=== PATIENT | female | born 1940 | race Caucasian/White ===

== ENCOUNTER 2019-01-02 10:41 | Outpatient (CLI) | payer MEDICARE, OTHER ==
--- NOTE | 2019-01-02 11:13 | MMO ---
Bilateral MAMMO Bilat Screen DDI+JUJU. CLINICAL HISTORY: Patient is 78 years old and is seen for screening. The patient has no family history of breast cancer. The patient has no personal history of cancer. VIEWS: The views performed were: bilateral craniocaudal with tomosynthesis and bilateral mediolateral oblique with tomosynthesis. FILMS COMPARED: The present examination has been compared to prior imaging studies performed at [facility] on 11/26/2012, 01/03/2015 and 12/31/2016, and at [facility] on 06/29/2009. MAMMOGRAM FINDINGS: The breasts are extremely dense, which may lower the sensitivity of mammography. There are vascular calcifications seen in both breasts. There are no suspicious masses, suspicious calcifications, or new areas of architectural distortion. IMPRESSION: THERE IS NO MAMMOGRAPHIC EVIDENCE OF MALIGNANCY. A ROUTINE FOLLOW-UP MAMMOGRAM IN 1 YEAR IS RECOMMENDED. THE RESULTS OF THIS EXAM WERE SENT TO THE PATIENT. ACR BI-RADS Category 2 - Benign finding MAMMOGRAPHY NOTE: 1. A negative mammogram report should not delay a biopsy if a dominant of clinically suspicious mass is present. 2. Approximately 10% to 15% of breast cancers are not detected by mammography. 3. Adenosis and dense breasts may obscure an underlying neoplasm.
== END 2019-01-02 10:42 | disposition home or self-care (01) ==
LOC: BICMAMMO 10:41
PROVIDERS: ATTEND Internal Medicine
DX: Z12.31 Encounter for screening mammogram for malignant neoplasm of breast (principal)
CPT/HCPCS: 77063; 77067

== ENCOUNTER 2020-04-06 09:27 | Outpatient (CLI) | payer MEDICARE, OTHER ==
--- NOTE | 2020-04-06 10:21 | MMO ---
Bilateral MAMMO Bilat Screen DDI+JUJU. CLINICAL HISTORY: Patient is 80 years old and is seen for screening. The patient has no family history of breast cancer. The patient has no personal history of cancer. VIEWS: The views performed were: bilateral craniocaudal with tomosynthesis and bilateral mediolateral oblique with tomosynthesis. FILMS COMPARED: The present examination has been compared to prior imaging studies performed at [facility] on 11/26/2012, 01/03/2015, 12/31/2016 and 01/02/2019. This study has been interpreted with the assistance of computer-aided detection. MAMMOGRAM FINDINGS: The breasts are extremely dense, which may lower the sensitivity of mammography. There are stable benign appearing calcifications seen in both breasts. There are no suspicious masses, suspicious calcifications, or new areas of architectural distortion. IMPRESSION: THERE IS NO MAMMOGRAPHIC EVIDENCE OF MALIGNANCY. A ROUTINE FOLLOW-UP MAMMOGRAM IN 1 YEAR IS RECOMMENDED. THE RESULTS OF THIS EXAM WERE SENT TO THE PATIENT. ACR BI-RADS Category 2 - Benign finding MAMMOGRAPHY NOTE: 1. A negative mammogram report should not delay a biopsy if a dominant of clinically suspicious mass is present. 2. Approximately 10% to 15% of breast cancers are not detected by mammography. 3. Adenosis and dense breasts may obscure an underlying neoplasm. Reported by: SAGAR WHITING MD Electonically Signed: [id number]
--- NOTE | 2020-04-06 12:31 | BD ---
BONE DENSITOMETRY USING DEXA: Date: 04/06/2020 HISTORY: Postmenopausal screening for osteoporosis. FINDINGS: Lumbar Spine: BMD (g/cm2) L1 0.677 T-Score: -2.8 Z-Score: -0.4 L2 0.724 T-Score: -2.8 Z-Score: -0.1 L3 0.819 T-Score: -2.4 Z-Score: 0.4 L4 0.884 T-Score: -1.6 Z-Score: 1.3 L1-L4 0.783 T-Score: -2.4 Z-Score: 0.3 Femoral Neck: 0.478 T-Score: -3.3 Z-Score: -1.0 Total Femur: 0.683 T-Score: -2.1 Z-Score: 0.0 IMPRESSION: Osteoporosis. POS: AH
== END 2020-04-06 09:28 | disposition home or self-care (01) ==
LOC: BICMAMMO 09:27
PROVIDERS: ATTEND Internal Medicine
DX: Z12.31 Encounter for screening mammogram for malignant neoplasm of breast (principal); Z13.820 Encounter for screening for osteoporosis; M81.0 Age-related osteoporosis without current pathological fracture
CPT/HCPCS: 77063; 77067; 77080

== ENCOUNTER 2020-04-08 10:44 | Observation (INO) | payer MEDICARE, OTHER ==
[2020-04-08 11:22] LABS: #Eosinphils 0.1 thou/uL (0.0-0.7); #Lymphocytes 0.7 thou/uL (1.20-3.40); #Monocytes 0.5 thou/uL (0.11-0.59); #Neutrophils 6.7 thou/uL (1.40-6.50); %Basophils 0.2 % (0.0-1.0); %Lymphocytes 9.2 % (21.0-51.0); %Monocytes 6.8 % (0.0-10.0); %Neutrophils 82.9 % (42.0-75.0); Hemoglobin 13.6 g/dL (12.0-16.0); Mean Corpuscular HGB CONC 33.9 g/dL (32.0-36.0); Mean Corpuscular Hemoglobin 32.7 pg (27.0-31.0); Mean Corpuscular Volume 96.4 fL (78.0-98.0); Mean Platelet Volume 8.7 fL (7.4-10.4); Platelet Count 205 thou/uL (130-400); Red Blood Cell (RBC) Count 4.15 mill/uL (4.20-5.40)
--- NOTE | 2020-04-08 11:28 | CT ---
CT BRAIN WITHOUT CONTRAST: Date: 04/08/2020 HISTORY: Fall, headache, weakness. Level II stroke. FINDINGS: No evidence of acute infarct, hemorrhage, midline shift, or abnormal extra-axial fluid collections ar e seen. There are changes of chronic small vessel ischemic disease in the periventricular white matte r. The ventricular size is normal and the basilar cisterns are patent. The bony calvarium is intact. The visualized paranasal sinuses are well aerated. IMPRESSION: No CT evidence of acute intracranial process. Discussed over the telephone with ER physician, Dr. Lia Gomez, at 1118 hours. CODE CR.
--- NOTE | 2020-04-08 11:35 | RAD ---
RADIOGRAPH CHEST 1 VIEW: DATE: 04/08/2020 HISTORY: 80-year-old female with dyspnea FINDINGS: There are no airspace densities, pulmonary edema, pneumothorax, or cardiomegaly. The lateral costophr enic angles are sharp. There is dextroscoliosis of the upper thoracic spine. IMPRESSION: 1. No acute cardiopulmonary findings. 2. Dextroscoliosis of upper thoracic spine.
--- NOTE | 2020-04-08 11:37 | RAD ---
Radiograph right hip 2 views: 04/08/2020 HISTORY: 80-year-old female with acute, traumatic right hip pain due to fall. FINDINGS: No fracture is identified. However, the osteopenia could obscure a nondisplaced fracture. No head con tour is maintained. No significant hip osteophytes. Joint space is maintained. Severe bilateral facet DJD at lower lumbar spine. Sclerotic changes overlapping the right femoral head could either be within the femoral head or in the acetabulum. IMPRESSION: 1.) Severe lower lumbar spondylosis. 2) osteopenia. 3) sclerosis at right hip. 4) no other abnormality of right hip identified.
[2020-04-08 11:47] LABS: ALT (SGPT) 18 U/L (8-55); AST (SGOT) 27 U/L (5-34); Albumin 4.3 g/dL (3.4-4.8); Alkaline Phosphatase 126 U/L (40-110); Anion Gap 11 mmol/L (10-20); BUN (Urea Nitrogen) 24 mg/dL (9.8-20.1); Bilirubin, Total 0.3 mg/dL (0.2-1.2); CK (CPK) 190 U/L (29-168); Calc. Creatinine Clearance 0 mL/min (70-130); Calcium 8.9 mg/dL (7.8-10.44); Carbon Dioxide 25 mmol/L (23-31); Chloride 109 mmol/L (98-107); Estimated GFR-MDRD 44; Globulin 2.5 g/dL (2.4-3.5); Glucose 97 mg/dL (83-110); Potassium 3.9 mmol/L (3.5-5.1); Protein, Total 6.8 g/dL (6.0-8.3); Sodium 141 mmol/L (136-145)
[2020-04-08 12:12] LABS: Bilirubin Negative (Negative); Blood, Urine Negative (Negative); Clarity Clear (Clear); Glucose, Urine (Dipstick) Normal (Negative); Ketone, Urine Negative (Negative); Leukocyte Negative Leu/uL (Negative); Nitrite Negative (Negative); Protein, Urine (Dipstick) 10 mg/dL (Neg-Trace); Specific Gravity, Urine 1.017 (1.002-1.036); Urobilinogen Normal mg/dL (Less than 2); pH, Urine 6.5 (5.0-9.0)
[2020-04-08] MEDS ORDERED: Aspirin Chewable 81 MG TAB ONE (13:13)
--- NOTE | 2020-04-08 13:17 | PDOC.HHP ---
Hospitalist HPI - History of Present Illness Weakness for several days History of Present Illness: PCP: Kenneth Veliz The patient is an 80-year-old female with a past medical history significant for renal insufficiency, hyperlipidemia and bilateral hand tremors that presents to the emergency department for the above complaint. The patient reports feeling generally weak for the past several days. Last night, around 3:00, she suffered a mechanical fall while walking in her house. She denies any loss of consciousness, hitting her head or vomiting. She denies syncope and vertigo. She was so weak that she crawled to the couch and rested there the rest of the morning. She did not want to "bother" her family that early in the morning. She denies any focal, unilateral weakness, change in speech. Then, around 7:00, she called her family member, to let them know what happened. When her family mem donna arrived, she reported headache, located around her entire head, described as aching, with no associated vision changes. There was a report of some slurred speech. She also reports that several days ago, she had double vision, which resolved spontaneously. Denies any recent fever or illness. No recent surgeries or hospitalizations. No change any home medications. At the time of her fall, denies any chest pain, heart palpitations, lower extremity swelling or lightheadedness. Denies any shortness of breath, wheezing, cough. Denies abdominal pain, nausea, vomiting, diarrhea. She denies any urinary symptoms. ED Course: VITAL SIGNS SatApr 08, 2020 10:45 DORINDA Randall Cheryl BP: 1314/67, Pulse: 67, Resp: 18, Temp: 97.9 (Oral), Pain: 3, O2 sat: 99 on (R oom Air), Time: 04/08/2020 10:45. VITAL SIGNS SatApr 08, 2020 11:41 DORINDA Fields Madison Brooke BP: 139/47, MAP: 77, Pulse: 63, Resp: 18, Temp: 97.9 (Oral), Pain: 3, O2 sat: 100 on (Room Air), Time: 04/08/2020 11:41. VITAL SIGNS SatApr 08, 2020 12:40 DORINDA Fields Madison Brooke BP: 130/59, Pulse: 82, Resp: 14, Pain: 3, O2 sat: 100 on (Room Air), Time: 04/08/2020 12:40. Medication administration: aspirin oral 324 mg Oral Acknowledged 12:45 04/08/2020 sodium chloride 0.9 % intravenous 1000 mL IV Fluid Infusion Acknowledged 12:45 04/08/2020 Hospitalist ROS - Review of Systems All other systems reviewed; all pertinent +/- noted in HPI/Subj - Medication Medications: topiramate SatApr 08, 2020 11:08 DORINDA Fields Madison Brooke tablet : Strength - 50 mg : ORAL Patient Dose: 1 tab(s) Oral 2 times a day. lisinopril SatApr 08, 2020 11:09 DORINDA Fields Madison Brooke tablet : Strength - 10 mg : ORAL Patient Dose: 1 tab(s) Oral once a day. atorvastatin SatApr 08, 2020 11:09 DORINDA Fields Madison Brooke tablet : Strength - 40 mg : ORAL Patient Dose: 1 tab(s) Oral once a day. doxercalciferol oral SatApr 08, 2020 11:10 DORINDA Fields Madison Brooke capsule : Strength - 1 mcg : ORAL Patient Dose: 1 tab(s) Oral once a day. primidone SatApr 08, 2020 11:11 DORINDA Fields Madison Brooke tablet : Strength - 250 mg : ORAL Patient Dose: 1 tab(s) Oral once a day. Allergies:No Known Drug Allergies Hospitalist History - Past Medical History Source: patient, family, RN notes reviewed Cardiac: reports: Hyperlipidemia HUMAN CAPITAL MANAGER: reports: Other (Bilateral hand tremors, on Topamax and primidone.) Renal/: reports: Chronic renal insuff - Past Surgical History Past Surgical History: reports: Cataract Removal (Bilateral), Hysterectomy, Total Hip Replacement (Left (6 years ago)), Other (Left rotator cuff) - Social History Smoking Status: Never smoker Alcohol: reports: None Drugs: reports: none Living Situation: Alone Occupation: Does not work Activity level: independent ambulation - Exam General Appearance: NAD, awake alert Eye: PERRL, anicteric sclera ENT: normocephalic atraumatic, dry oral mucosa Neck: supple, symmetric, no JVD Heart: RRR, no murmur, no gallops, no rubs, normal peripheral pulses Respiratory: CTAB, no wheezes, no rales, no ronchi, normal chest expansion, no tachypnea Gastrointestinal: non-tender, normal bowel sounds, no guarding, no rigidity Extremities: no cyanosis, no edema Skin: no rashes Neurological: cranial nerve grossly intact, no weakness, no focal deficits. negative: facial droop, speech deficit Neurological - other findings: NIH 0 Psychiatric: normal affect, A&O x 3 Hospitalist Results - Labs Result Diagrams: 04/08/20 11:07 04/08/20 11:07 Lab results: WBC 8.0 thou/uL (4.8-10.8) 04/08/20 11:07 Hgb 13.6 g/dL (12.0-16.0) 04/08/20 11:07 Hct 40.0 % (36.0-47.0) 04/08/20 11:07 MCV 96.4 fL (78.0-98.0) 04/08/20 11:07 Plt Count 205 thou/uL (130-400) 04/08/20 11:07 Neutrophils % 82.9 % (42.0-75.0) H 04/08/20 11:07 Sodium 141 mmol/L (136-145) 04/08/20 11:07 Potassium 3.9 mmol/L (3.5-5.1) 04/08/20 11:07 Chloride 109 mmol/L (98-107) H 04/08/20 11:07 Carbon Dioxide 25 mmol/L (23-31) 04/08/20 11:07 BUN 24 mg/dL (9.8-20.1) H 04/08/20 11:07 Creatinine 1.19 mg/dL (0.6-1.1) H 04/08/20 11:07 Glucose 97 mg/dL (83-110) 04/08/20 11:07 Calcium 8.9 mg/dL (7.8-10.44) 04/08/20 11:07 Total Bilirubin 0.3 mg/dL (0.2-1.2) 04/08/20 11:07 AST 27 U/L (5-34) 04/08/20 11:07 ALT 18 U/L (8-55) 04/08/20 11:07 Alkaline Phosphatase 126 U/L (40-110) H 04/08/20 11:07 Creatine Kinase 190 U/L (29-168) H 04/08/20 11:07 Troponin I 0.015 ng/mL (< 0.028) 04/08/20 11:07 Serum Total Protein 6.8 g/dL (6.0-8.3) 04/08/20 11:07 Albumin 4.3 g/dL (3.4-4.8) 04/08/20 11:07 Urine Ketones Negative mg/dL (Negative) 04/08/20 12:02 Urine Blood Negative (Negative) 04/08/20 12:02 Urine Nitrite Negative (Negative) 04/08/20 12:02 Ur Leukocyte Esterase Negative Ketan/uL (Negative) 04/08/20 12:02 - EKG Interpretation EK lead EKG interpreted by Emergency Department Physician at time of study, 12 lead EKG shows normal sinus rhythm, Rate (beats per minute): 63, with no ectopics, Conduction normal, ST segments normal, T waves normal, Hughson normal. - Radiology Interpretation Chest x-ray Status: report reviewed by me Additional Comment: IMPRESSION: 1. No acute cardiopulmonary findings. 2. Dextroscoliosis of upper thoracic spine Other Status: report reviewed by me Additional Comment: Right hip Xray IMPRESSION: 1.) Severe lower lumbar spondylosis. 2) osteopenia. 3) sclerosis at right hip. 4) no other abnormality of right hip identified. CT scan - head Status: report reviewed by me Additional Comment: IMPRESSION: No CT evidence of acute intracranial process Hospitalist H&P A/P - Problem (1) TIA (transient ischemic attack) Code(s): G45.9 - TRANSIENT CEREBRAL ISCHEMIC ATTACK, UNSPECIFIED Status: Acute (2) Slurred speech Code(s): R47.81 - SLURRED SPEECH Status: Acute (3) Hyperlipidemia Code(s): E78.5 - HYPERLIPIDEMIA, UNSPECIFIED Status: Chronic (4) Tremor of both hands Code(s): R25.1 - TREMOR, UNSPECIFIED Status: Chronic (5) Chronic renal insufficiency Code(s): N18.9 - CHRONIC KIDNEY DISEASE, UNSPECIFIED Status: Chronic - Plan Plan: 80/F with PMH HLD, RI and bilateral hand tremor presents for generalized weakness and fall. Admit to stroke unit, observation status. Expected length of stay less than 2 midnights. Presented stable vital signs. CT brain negative for acute process. CXR negative for acute process. EKG normal sinus rhythm, no ST elevations. Troponin 0.015, CK 190, UA unremarkable. NIH 0 at admission. #TIA Order MRI, CD US, echocardiogram Check TSH, FLP, mag, folate and B12 Consult neurology and PT. Permissive hypertension. Neurochecks. #Slurred speech Likely related problems are 1. #Hyperlipidemia Takes atorvastatin at home. We will restart home medication. Get FLP. #Bilateral hand tremors Chronic. Reports entire family has same diagnosis. Takes Topamax, primidone, and unknown other home medication. Restart home dose of primidone, Topamax and other medication when reconciled by nursing. #Chronic renal insufficiency Takes lisinopril at home. Presented creatinine 1.19, was 1.17 on 11/2012. Appears stable. Restart home dose of lisinopril. SCDs for DVT prophylaxis. No GI prophylaxis. Full code. Medical decision maker is her daughter Elle peck at [phone]. Discussed the case with Dr. Durham.
[2020-04-08] MEDS ORDERED: hydrALAZINE 20 MG/ML VIAL SLOW IVP PRN (14:14)
[2020-04-08] MEDS ORDERED: Labetalol HCl 100 MG/20 ML VIAL SLOW IVP PRN (14:14)
[2020-04-08] MEDS ORDERED: Senokot S 8.6-50 MG TAB PO PRN (14:15)
[2020-04-08] MEDS ORDERED: Acetaminophen 325 MG TAB PO PRN (14:15)
[2020-04-08] MEDS ORDERED: Ondansetron ODT 4 MG TAB PO PRN (14:15)
[2020-04-08] MEDS ORDERED: Ondansetron PF 4 MG/2 ML Vial IVP PRN (14:15)
[2020-04-08] MEDS ORDERED: Primidone 250 MG TAB PO SCH (14:30)
[2020-04-08 14:31] VITALS: BMI 25.4
--- NOTE | 2020-04-08 15:43 | MRI ---
MRI BRAIN WITHOUT CONTRAST: HISTORY: TIA, fall, headache, weakness, level II stroke. FINDINGS: Correlation is made with the CT scan from earlier today. FINDINGS: There are multiple foci of T2 prolongation in the periventricular white matter consistent with chroni c small-vessel ischemic disease. No restricted diffusion is seen. The ventricular size is appropria te and the basilar cisterns patent. No evidence of acute infarct, hemorrhage, midline shift, or abnormal extraaxial fluid collections is seen. The visualized paranasal sinuses and mastoid air cells are well aerated. IMPRESSION: No evidence of acute intracranial process. POS: AH
--- NOTE | 2020-04-08 16:52 | ULT ---
BILATERAL CAROTID DOPPLER ULTRASOUND: 04/08/20 TECHNIQUE: Perez scale, with color flow and spectral Doppler imaging of the extracranial carotid artery systems w as performed bilaterally. FINDINGS: There is plaque formation on both sides. The peak systolic velocity in the right ICA measures 59 cm/s with an end diastolic velocity of 18 cm/ s and systolic ratio of 0.79. The peak systolic velocity in the left ICA measures 72 cm/s with an end diastolic velocity of 15 cm/s and systolic ratio of 1.07. Flow in both vertebral arteries remain antegrade. IMPRESSION: No evidence of hemodynamically significant stenosis in either ICA. POS: AH
[2020-04-08] MEDS: Atorvastatin Calcium 40 MG TAB PO SCH ×2 (21:13→21:18)
[2020-04-09 04:50] LABS: #Eosinphils 0.3 thou/uL (0.0-0.7); #Monocytes 0.4 thou/uL (0.11-0.59); #Neutrophils 2.7 thou/uL (1.40-6.50); %Basophils 0.5 % (0.0-1.0); %Lymphocytes 21.9 % (21.0-51.0); %Monocytes 9.5 % (0.0-10.0); %Neutrophils 62.1 % (42.0-75.0); Hemoglobin 11.8 g/dL (12.0-16.0); Mean Corpuscular HGB CONC 34.1 g/dL (32.0-36.0); Mean Corpuscular Hemoglobin 32.7 pg (27.0-31.0); Mean Corpuscular Volume 96.1 fL (78.0-98.0); Mean Platelet Volume 8.7 fL (7.4-10.4); Platelet Count 177 thou/uL (130-400); Red Blood Cell (RBC) Count 3.62 mill/uL (4.20-5.40); White Blood Cell (WBC) Count 4.4 thou/uL (4.8-10.8)
[2020-04-09 05:45] LABS: Anion Gap 13 mmol/L (10-20); BUN (Urea Nitrogen) 21 mg/dL (9.8-20.1); Calc. Creatinine Clearance 40 mL/min (70-130); Calcium 8.1 mg/dL (7.8-10.44); Carbon Dioxide 22 mmol/L (23-31); Cardiac Risk 3.2 (Less than 4.5); Chloride 110 mmol/L (98-107); Cholesterol 175 mg/dl (< 200 Desired); Estimated GFR-MDRD 47; Glucose 98 mg/dL (83-110); HDL Cholesterol 54 mg/dL (>60 Neg Risk); LDL Cholesterol, Calculated 105 mg/dL; Potassium 3.9 mmol/L (3.5-5.1); Sodium 141 mmol/L (136-145); Triglycerides 80 mg/dL (Less than 150)
[2020-04-09] MEDS ORDERED: Lisinopril 10 MG TAB PO SCH (09:00)
[2020-04-09] MEDS ORDERED: Primidone 250 MG TAB PO SCH ×2 (09:00)
[2020-04-09] MEDS ORDERED: Topiramate 25 MG TAB PO SCH (09:00)
[2020-04-09] MEDS ORDERED: DOXERCALCIFEROL 1 MCG PO SCH (09:00)
[2020-04-09] MEDS ORDERED: Aspirin 81 mg Enteric Coated Tablet PO SCH (09:00)
--- NOTE | 2020-04-09 10:10 | CON ---
DATE OF CONSULTATION: 04/09/2020 CONSULTING PHYSICIAN: Hospitalist Service. IMPRESSION: Mild weakness which resulted in a fall. PLAN: 1. Outpatient physical therapy program. 2. Start using a walker. 3. Follow up with her neurologist at [facility]. HISTORY OF PRESENT ILLNESS: Ms. Garcia is an 80-year-old female with a past history of hypertension and tremor. She is followed by neurologist at [facility]. She was at home when she fell and could not get up. She called for assistance and was brought into the hospital for evaluation. She had an MRI of the brain done, which was unremarkable other than some aging related changes. Carotid ultrasound was clear bilaterally. Her lab work included a CBC and serum chemistry, which was all unremarkable as well. Her folate level was a little low at 3.3. B12 was on the low end at 218. Cardiac ratio was 3.2. Urine was clear. They did orthostatic vital signs on her and there was no significant shift. She reports that she has been feeling a little run down lately, but had no other particular complaints of pain, numbness, tingling, headache, nausea, vomiting, or dizziness. PAST MEDICAL HISTORY: As listed above. ALLERGIES: NONE. SOCIAL HISTORY: No tobacco or alcohol. She lives alone in her own home. She gets around without a cane or walker. She has a brother who lives next door. MEDICATIONS: Reviewed. These are reportedly stable for some time now. FAMILY HISTORY: Noncontributory. REVIEW OF SYSTEMS: Ten-system review of systems is otherwise negative. PHYSICAL EXAMINATION: VITAL SIGNS: Blood pressure 133/60, pulse 58, respirations 16, temperature 97.8. HEENT: Pupils equal and reactive. Conjunctivae clear. Oropharynx clear. NECK: Supple. No lymphadenopathy. CHEST: Clear. ABDOMEN: Soft and nontender. EXTREMITIES: No cyanosis or edema. SKIN: Clear. NEUROLOGIC: She is alert and appropriate. Her speech is fluent and clear. Cranial nerves 2 through 12 are intact. Motor exam showed some mild proximal weakness in all 4 extremities. Sensation was intact to touch and proprioception. She had a mild postural tremor. She could stand with minimal assistance. SUMMARY: This is an elderly lady, who got a bit weak and fell and was unable to get up from the floor. She has some mild generalized weakness. Her workup is otherwise negative. I think that this can be managed as an outpatient. Job ID: [id number]
[2020-04-09 15:24] LABS: SARS-CoV-2 MS2 Positive; SARS-CoV-2 N Gene Negative; SARS-CoV-2 S Gene Negative; SARS-CoV-2 by NAA Not Detected (NotDetected); SARS-CoV-2 orf1ab Negative
[2020-04-09 16:27] VITALS: BP 122/58; TEMP 98.1
--- NOTE | 2020-04-09 19:40 | DIS ---
DATE OF ADMISSION: 04/08/2020 DATE OF DISCHARGE: 04/09/2020 DISCHARGE DIAGNOSES: 1. Transient Ischemic Attack. 2. Dyslipidemia. 3. Chronic tremor. 4. Acute kidney injury resolved. CONSULTATION: Neurology, Dr. Rice. PROCEDURE PERFORMED: None. LABORATORY DATA AND IMAGING STUDY: WBC is 4.4, hemoglobin 11.8, hematocrit 34.7, platelets 177. Chemistry; sodium 141, potassium 3.9, chloride is 110, carbon dioxide 22, BUN is 21, creatinine is 1.1. LDL 105. Folate 3.3, vitamin B12 of 218, ALT within normal limits. UA was negative. COVID PCR was negative. Brain MRI was negative for acute intracranial process. Echo showed preserved EF of 55% to 60%. Carotid Doppler, no evidence of hemodynamically significant stenosis for either ICA. Brain CT, no evidence of acute intracranial abnormality. Hip x-ray, severe lower lumbar spondylosis, osteopenia, sclerosis of right hip. HISTORY OF PRESENT ILLNESS AND BRIEF HOSPITAL COURSE: The patient is a pleasant 80-year-old female, who has significant past medical history of dyslipidemia, chronic bilateral tremor, who presented to the ED with complaint of weakness for the past few days. The patient appeared to have a mechanical fall while walking in the house. She also has some slurred speech and visual disturbances. She was brought into the ED for further evaluation. She was ultimately admitted to hospitalist service for further stroke workup. Her initial CT was negative for acute intracranial abnormality. Her symptoms resolved. However, she reports that she had that intermittent double vision, which has been going on for a while. Stated, she will follow up with her eye doctor. Her stroke workup was unremarkable. We also offered outpatient rehab as well as home health, however, the patient declined. She would like to be discharged home. The patient was seen by Neurology. Recommend outpatient physical therapy. The patient to follow up with Neurology at [facility]. She will continue her low-dose aspirin as well as her cholesterol. At this time, her symptom has resolved. The patient is stable to discharge home. DISPOSITION: The patient is stable to discharge home. ACTIVITY: As tolerated, fall precaution, the patient was encouraged to use her walker. FOLLOWUP: The patient to follow with her PCP, as well as her neurologist at [facility]. DIET: Regular diet. PHYSICAL EXAMINATION: VITAL SIGNS: Temperature is 98.1, respiratory rate 17, pulse 61, she is saturating 95% on room air. Blood pressure is 122/58. GENERAL APPEARANCE: The patient appears to be comfortable. She is not in acute distress. HEENT: Normocephalic, atraumatic. Mucous membranes moist. NECK: Supple. No lymphadenopathy. No JVD. CARDIOVASCULAR: Regular rate and rhythm. S1 and S2 noted. No murmur. PULMONOLOGY: Clear to auscultation bilaterally. ABDOMEN: Soft, nontender, nondistended. Positive bowel sounds. MUSCULOSKELETAL: No joint pain or tenderness. No lower extremity edema. SKIN: Intact. NEUROLOGIC: Cranial nerve 2 through 12 grossly intact. No focal weakness. PSYCHIATRIC: The patient is alert and oriented x3 with normal affect. DISCHARGE MEDICATIONS: The patient to continue her routine home medications includin. Lisinopril 10 mg p.o. daily. 2. Primidone 250 mg b.i.d. 3. Topamax 50 mg b.i.d. 4. Aspirin 81 mg p.o. daily. 5. Lipitor 40 mg p.o. daily. 6. Doxercalciferol 1 mcg p.o. daily. Thank you for allowing us to participate in this patient's care. Discharge time spent, 30 minutes. Job ID: [id number] [facility]
== END 2020-04-09 18:41 | disposition home or self-care (01) ==
LOC: ERS 10:44 → 2SE 14:05
PROVIDERS: ADMIT Internal Medicine; ATTEND Internal Medicine
DX: G45.9 Transient cerebral ischemic attack, unspecified (principal); E78.5 Hyperlipidemia, unspecified; R25.1 Tremor, unspecified; N18.9 Chronic kidney disease, unspecified; N17.9 Acute kidney failure, unspecified; Z79.899 Other long term (current) drug therapy; Z20.828 Contact with and (suspected) exposure to other viral communicable diseases
CPT/HCPCS: 70450; 70551; 71045; 73502; 80048; 80053; 80061; 81003; 82550; 82607; 82746; 82962; 83735; 84484; 85025 ×2; 93005; 93306; 93880; 97139; 99285; U0003; 36415; 36416; 87635; G0378

== ENCOUNTER 2020-07-04 13:10 | Emergency (ER) | payer MEDICARE, OTHER ==
[2020-07-04] MEDS ORDERED: Lidocaine 1% (PF) 30 ML VIAL ONE (16:35)
--- NOTE | 2020-07-04 16:39 | CT ---
CT BRAIN WITHOUT CONTRAST: History: Fall, left sided weakness, laceration to the back of the head. Comparison: 04-08-2020 FINDINGS: Changes of chronic small vessel ischemic disease are again seen. The ventricular size is stable and t he basilar cisterns patent. No evidence of acute infarct, hemorrhage, midline shift, or abnormal extr aaxial fluid collections are seen. The bony calvarium is intact. Visualized paranasal sinuses are wel l aerated. IMPRESSION: No CT evidence of acute intracranial process. POS: AH
== END 2020-07-04 17:15 | disposition home or self-care (01) ==
LOC: ERS 13:10
DX: S01.01XA Laceration without foreign body of scalp, initial encounter (principal); I10 Essential (primary) hypertension; E78.00 Pure hypercholesterolemia, unspecified; W01.10XA Fall on same level from slipping, tripping and stumbling with subsequent striking against unspecified object, initial encounter
CPT/HCPCS: 12002; 70450; J2001

== ENCOUNTER 2021-02-22 08:02 | Outpatient (CLI) | payer MEDICARE | END 2021-02-22 08:03 | disposition home or self-care (01) | LOC: NM 08:02 | PROVIDERS: ATTEND Psychiatry & Neurology Neurology | DX: R25.1 Tremor, unspecified (principal) | CPT/HCPCS: 78803; A9584 ==

== ENCOUNTER 2021-03-30 19:32 | Inpatient (IN) | payer MEDICARE ==
[2021-03-30] MEDS ORDERED: Morphine 4 MG/ML VIAL ONE (20:13)
[2021-03-30 20:40] LABS: #Eosinphils 0.2 thou/uL (0.0-0.7); #Lymphocytes 1.1 thou/uL (1.20-3.40); #Monocytes 0.4 thou/uL (0.11-0.59); #Neutrophils 7.1 thou/uL (1.40-6.50); %Basophils 0.1 % (0.0-1.0); %Eosinophils 1.7 % (0.0-10.0); %Lymphocytes 12.1 % (21.0-51.0); %Monocytes 4.7 % (0.0-10.0); %Neutrophils 81.4 % (42.0-75.0); Hemoglobin 13.5 g/dL (12.0-16.0); Mean Corpuscular HGB CONC 33.1 g/dL (32.0-36.0); Mean Corpuscular Hemoglobin 31.9 pg (27.0-31.0); Mean Corpuscular Volume 96.4 fL (78.0-98.0); Mean Platelet Volume 8.3 fL (7.4-10.4); Platelet Count 206 thou/uL (130-400); RBC Distribution Width 12.9 % (11.5-14.5); Red Blood Cell (RBC) Count 4.22 mill/uL (4.20-5.40); White Blood Cell (WBC) Count 8.8 thou/uL (4.8-10.8)
[2021-03-30 21:12] LABS: ALT (SGPT) 14 U/L (8-55); AST (SGOT) 18 U/L (5-34); Albumin 3.8 g/dL (3.4-4.8); Alkaline Phosphatase 150 U/L (40-110); Anion Gap 11 mmol/L (10-20); BUN (Urea Nitrogen) 18 mg/dL (9.8-20.1); Bilirubin, Total 0.3 mg/dL (0.2-1.2); Calc. Creatinine Clearance 0 mL/min (70-130); Calcium 8.7 mg/dL (7.8-10.44); Carbon Dioxide 23 mmol/L (23-31); Chloride 111 mmol/L (98-107); Globulin 2.1 g/dL (2.4-3.5); Glucose 114 mg/dL (83-110); Potassium 4.1 mmol/L (3.5-5.1); Protein, Total 5.9 g/dL (5.8-8.1); Sodium 141 mmol/L (136-145)
[2021-03-30] MEDS ORDERED: Ketorolac Tromethamine 30 MG/ML VIAL ONE (21:54)
[2021-03-31] MEDS ORDERED: Ondansetron ODT 4 MG TAB PO PRN (00:08)
[2021-03-31] MEDS ORDERED: hydrALAZINE 20 MG/ML VIAL SLOW IVP PRN (00:08)
[2021-03-31] MEDS ORDERED: traMADol HCl 50 MG TAB PO PRN (00:13)
[2021-03-31] MEDS ORDERED: Cyclobenzaprine 10 MG TAB PO PRN (00:13)
[2021-03-31] MEDS: Sodium Chloride 0.9% 1,000 ML IV SCH ×3 (02:12→20:45)
[2021-03-31] MEDS: traMADol HCl 50 MG TAB PO SCH ×2 (02:12→12:50)
[2021-03-31] MEDS: Acetaminophen 325 MG TAB PO SCH ×4 (02:13→19:03)
[2021-03-31 04:41] VITALS: BMI 24.6
[2021-03-31 08:19] LABS: #Basophils 0.1 thou/uL (0.0-0.2); #Eosinphils 0.1 thou/uL (0.0-0.7); #Lymphocytes 0.9 thou/uL (1.20-3.40); #Monocytes 0.5 thou/uL (0.11-0.59); #Neutrophils 4.9 thou/uL (1.40-6.50); %Basophils 1.7 % (0.0-1.0); %Eosinophils 1.9 % (0.0-10.0); %Lymphocytes 14.1 % (21.0-51.0); %Neutrophils 75.3 % (42.0-75.0); Hemoglobin 12.6 g/dL (12.0-16.0); Mean Corpuscular HGB CONC 33.3 g/dL (32.0-36.0); Mean Corpuscular Hemoglobin 32.5 pg (27.0-31.0); Mean Corpuscular Volume 97.7 fL (78.0-98.0); Mean Platelet Volume 8.9 fL (7.4-10.4); Platelet Count 152 thou/uL (130-400); RBC Distribution Width 12.8 % (11.5-14.5); Red Blood Cell (RBC) Count 3.88 mill/uL (4.20-5.40); White Blood Cell (WBC) Count 6.5 thou/uL (4.8-10.8)
[2021-03-31 08:48] LABS: Anion Gap 13 mmol/L (10-20); BUN (Urea Nitrogen) 19 mg/dL (9.8-20.1); Calc. Creatinine Clearance 34 mL/min (70-130); Calcium 8.3 mg/dL (7.8-10.44); Carbon Dioxide 21 mmol/L (23-31); Chloride 110 mmol/L (98-107); Glucose 95 mg/dL (83-110); Potassium 4.5 mmol/L (3.5-5.1); Sodium 139 mmol/L (136-145)
[2021-03-31] MEDS ORDERED: Enoxaparin Sodium 40 MG/0.4 ML SYRINGE SC SCH (09:00)
[2021-03-31] MEDS: Gabapentin 100 MG CAP PO SCH ×2 (10:32→10:39)
[2021-03-31] MEDS: Lisinopril 10 MG TAB PO SCH (10:33)
[2021-03-31] MEDS: Aspirin 81 mg Enteric Coated Tablet PO SCH (10:33)
[2021-03-31] MEDS: Primidone 250 MG TAB PO SCH ×2 (10:33→20:43)
[2021-03-31] MEDS: Atorvastatin Calcium 40 MG TAB PO SCH (10:33)
[2021-03-31] MEDS: Multivitamin W/ Minerals 1 TAB PO SCH (10:33)
[2021-03-31] MEDS: Polyethylene Glycol 3350 17 GM Packet PO SCH (10:34)
[2021-03-31] MEDS: Senokot S 8.6-50 MG TAB PO SCH ×2 (10:41→20:43)
[2021-03-31 12:25] LABS: SARS-CoV-2 NAA Rapid Test Not Detected (NotDetected)
[2021-03-31] MEDS: Topiramate 25 MG TAB PO SCH ×2 (12:49→20:43)
[2021-04-01] MEDS: traMADol HCl 50 MG TAB PO SCH ×2 (01:52→13:11)
[2021-04-01] MEDS: Acetaminophen 325 MG TAB PO SCH ×4 (01:52→20:28)
[2021-04-01] MEDS: Sodium Chloride 0.9% 1,000 ML IV SCH (04:13)
[2021-04-01] MEDS: Lisinopril 10 MG TAB PO SCH (09:15)
[2021-04-01] MEDS: Senokot S 8.6-50 MG TAB PO SCH ×2 (09:15→20:29)
[2021-04-01] MEDS: Primidone 250 MG TAB PO SCH ×2 (09:15→20:29)
[2021-04-01] MEDS: Gabapentin 100 MG CAP PO SCH (09:15)
[2021-04-01] MEDS: Aspirin 81 mg Enteric Coated Tablet PO SCH (09:15)
[2021-04-01] MEDS: Atorvastatin Calcium 40 MG TAB PO SCH (09:16)
[2021-04-01] MEDS: Multivitamin W/ Minerals 1 TAB PO SCH (09:16)
[2021-04-01] MEDS: Enoxaparin Sodium 30 MG/0.3 ML SYRINGE SC SCH (09:18)
[2021-04-01] MEDS: Polyethylene Glycol 3350 17 GM Packet PO SCH (09:18)
[2021-04-01] MEDS: Topiramate 25 MG TAB PO SCH ×2 (10:14→20:29)
[2021-04-02] MEDS: Acetaminophen 325 MG TAB PO SCH ×4 (01:18→18:31)
[2021-04-02] MEDS: traMADol HCl 50 MG TAB PO SCH ×2 (01:18→13:40)
[2021-04-02] MEDS: Multivitamin W/ Minerals 1 TAB PO SCH (08:46)
[2021-04-02] MEDS: Atorvastatin Calcium 40 MG TAB PO SCH (08:46)
[2021-04-02] MEDS: Aspirin 81 mg Enteric Coated Tablet PO SCH (08:46)
[2021-04-02] MEDS: Gabapentin 100 MG CAP PO SCH (08:47)
[2021-04-02] MEDS: Senokot S 8.6-50 MG TAB PO SCH ×2 (08:47→20:41)
[2021-04-02] MEDS: Lisinopril 10 MG TAB PO SCH (08:47)
[2021-04-02] MEDS: Polyethylene Glycol 3350 17 GM Packet PO SCH (08:47)
[2021-04-02] MEDS: Enoxaparin Sodium 30 MG/0.3 ML SYRINGE SC SCH (08:47)
[2021-04-02] MEDS: Primidone 250 MG TAB PO SCH ×2 (08:47→20:41)
[2021-04-02] MEDS: Topiramate 25 MG TAB PO SCH ×2 (11:07→20:42)
[2021-04-03] MEDS: Acetaminophen 325 MG TAB PO SCH ×3 (00:41→12:44)
[2021-04-03] MEDS: traMADol HCl 50 MG TAB PO SCH ×2 (00:42→12:39)
[2021-04-03] MEDS: Senokot S 8.6-50 MG TAB PO SCH (09:11)
[2021-04-03] MEDS: Polyethylene Glycol 3350 17 GM Packet PO SCH (09:11)
[2021-04-03] MEDS: Atorvastatin Calcium 40 MG TAB PO SCH (09:11)
[2021-04-03] MEDS: Aspirin 81 mg Enteric Coated Tablet PO SCH (09:11)
[2021-04-03] MEDS: Multivitamin W/ Minerals 1 TAB PO SCH (09:11)
[2021-04-03] MEDS: Primidone 250 MG TAB PO SCH (09:11)
[2021-04-03] MEDS: Enoxaparin Sodium 30 MG/0.3 ML SYRINGE SC SCH (09:12)
[2021-04-03] MEDS: Topiramate 25 MG TAB PO SCH (09:12)
[2021-04-03] MEDS: Gabapentin 100 MG CAP PO SCH (09:12)
[2021-04-03] MEDS: Lisinopril 10 MG TAB PO SCH (09:13)
[2021-04-03] MEDS ORDERED: FLU VACC QS2021-22(65YR UP)/PF 240 MCG/0.7 ML SYRINGE IM ONE (09:30)
[2021-04-03 15:53] VITALS: BP 116/74; TEMP 98
== END 2021-04-03 18:26 | disposition home health service (06) | DRG 563 ==
LOC: ERS 19:32 → SURG A 03-31 00:13
PROVIDERS: ADMIT Specialist; ATTEND Specialist
DX: S42.211A Unspecified displaced fracture of surgical neck of right humerus, initial encounter for closed fracture (principal); S32.591A Other specified fracture of right pubis, initial encounter for closed fracture; S52.571A Other intraarticular fracture of lower end of right radius, initial encounter for closed fracture; E78.00 Pure hypercholesterolemia, unspecified; N18.9 Chronic kidney disease, unspecified; I12.9 Hypertensive chronic kidney disease with stage 1 through stage 4 chronic kidney disease, or unspecified chronic kidney disease; G25.0 Essential tremor; Z96.642 Presence of left artificial hip joint; W18.09XA Striking against other object with subsequent fall, initial encounter; Z98.42 Cataract extraction status, left eye; Z98.41 Cataract extraction status, right eye; Z90.710 Acquired absence of both cervix and uterus; Z79.899 Other long term (current) drug therapy
CPT/HCPCS: 25600; 36415; 72170; 80048; 80053; 85025; 96374; 96375; G0390; J1650; J1885; J2270; J7050; U0002

== ENCOUNTER 2022-02-04 10:10 | Emergency (ER) | payer MEDICARE | END 2022-02-04 12:32 | disposition home or self-care (01) | LOC: ERS 10:10 | DX: M25.512 Pain in left shoulder (principal); I10 Essential (primary) hypertension; E78.00 Pure hypercholesterolemia, unspecified; Z79.899 Other long term (current) drug therapy; W18.30XA Fall on same level, unspecified, initial encounter | CPT/HCPCS: 93005 ==

== ENCOUNTER 2022-07-17 14:46 | Outpatient (CLI) | payer MEDICARE | END 2022-07-17 14:47 | disposition home or self-care (01) | LOC: BICMAMMO 14:46 | PROVIDERS: ATTEND Internal Medicine | DX: M80.00XA Age-related osteoporosis with current pathological fracture, unspecified site, initial encounter for fracture (principal) | CPT/HCPCS: 77080 ==

== ENCOUNTER 2023-11-28 12:32 | Emergency (ER) | payer MEDICARE | END 2023-11-28 14:50 | disposition home or self-care (01) | LOC: ERS 12:32 | DX: M25.551 Pain in right hip (principal); J01.90 Acute sinusitis, unspecified; M16.11 Unilateral primary osteoarthritis, right hip; I10 Essential (primary) hypertension | CPT/HCPCS: 72192 ==

== ENCOUNTER 2023-12-12 13:39 | Emergency (ER) | payer MEDICARE | END 2023-12-12 15:42 | disposition home or self-care (01) | LOC: ERS 13:39 | DX: S52.502A Unspecified fracture of the lower end of left radius, initial encounter for closed fracture (principal); I10 Essential (primary) hypertension; W01.0XXA Fall on same level from slipping, tripping and stumbling without subsequent striking against object, initial encounter ==